=== PATIENT | male | born 1975 | race Caucasian/White ===

== ENCOUNTER → 2018-06-12 12:09 | Outpatient (CLI) | payer OTHER, SELFPAY ==
--- NOTE | 2018-06-12 12:12 | RAD_ITS ---
STUDY: X-RAY - LEFT KNEE REASON FOR EXAM: Male, 42 years old. Pain TECHNIQUE: 4 view(s) of the knee. COMPARISON: None. FINDINGS: Normal visualized distal femur. Normal visualized proximal tibia and fibula. Normal proximal tibiofibular articulation. There is no demonstrated fracture. Normal medial femorotibial compartment. Normal lateral femorotibial compartment. Normal patellofemoral articulation. There is no demonstrated joint effusion. The soft tissue structures are unremarkable. RAD/Knee 4 or More Views IMPRESSION: Normal x-ray examination of the knee. Electronically Signed: Hola Steele MD at 22:41 EDT , Service support ,
--- NOTE | 2018-06-12 12:12 | RAD_ITS ---
STUDY: X-RAY - RIGHT KNEE REASON FOR EXAM: Male, 42 years old. Pain TECHNIQUE: 4 view(s) of the knee. COMPARISON: None. FINDINGS: Normal visualized distal femur. Normal visualized proximal tibia and fibula. Normal proximal tibiofibular articulation. There is no demonstrated fracture. Normal medial femorotibial compartment. Normal lateral femorotibial compartment. Normal patellofemoral articulation. There is no demonstrated joint effusion. The soft tissue structures are unremarkable. RAD/Knee 4 or More Views IMPRESSION: Normal x-ray examination of the knee. Electronically Signed: Hola Steele MD at 22:40 EDT , Service support ,
[2018-06-12 14:07] LABS: Erythrocyte Sedimentation Rate < 1 mm/hr (0-15)
[2018-06-12 14:10] LABS: CRP < 2.90 mg/L (0.0-3.0); Rheumatoid Factor < 10.0 IU/mL (<15)
[2018-06-12 14:16] LABS: Vitamin D,25 Hydroxy 21.9 ng/mL (29.95-100.01)
[2018-06-14 09:12] LABS: CCP IgG Antibodies 5 units (0-19)
[2018-06-14 09:24] LABS: ANTINUCLEAR ANTIBODIES DIRECT Negative (Negative)
== END ==
PROVIDERS: Family Provider Family Medicine; PCP Family Medicine; Visit Provider Family Medicine
DX: M25.561 Pain in right knee (principal); M25.562 Pain in left knee; M06.4 Inflammatory polyarthropathy
CPT/HCPCS: 36415; 73564; 82306; 85652; 86038; 86140; 86200; 86431

== ENCOUNTER → 2018-06-21 10:13 | Outpatient (CLI) | payer OTHER, SELFPAY ==
[2018-06-21 12:13] LABS: Absolute Lymphocyte Count 2.33 X10^3/ul (0.83-4.51); Basophil# 0.02 X10^3/uL; Basophil% 0.3 % (0-1); Eosinophil# 0.23 X10^3/uL; Eosinophils% 3.2 % (0-5); Hematocrit 42.2 % (40-54); Hemoglobin 14.9 g/dl (13.0-16.5); Lymphocyte # 2.33 X10^3/ul (4.0); Lymphocyte % 32.3 % (19-41); Mean Corp Hgb Conc 35.3 g/gl (32-36); Mean Corpuscular Hgb 30.7 pg (27.0-32.0); Mean Platelet Vol. 12.8 fl (6.2-12.0); Monocyte# 0.64 X10^3/uL; Monocyte% 8.9 % (0-10); Neutrophil # 3.97 X10^3/uL (2.7-7.7); Platelet Count 217 K/mm3 (150-450); RBC Distribution Width CV 13.1 % (11.6-14.6); RBC Distribution Width SD 40.7 fl (35.1-43.9); Red Blood Count 4.85 M/mm3 (4.6-6.2); White Blood Count 7.2 K/mm3 (4.4-11.0)
[2018-06-21 12:31] LABS: ALB/GLOB Ratio 1.3 RATIO (0.9-2.4); AST(SGOT) 26 U/L (15-37); Alanine Aminotransfer ALT/SGPT 62 U/L (16-61); Albumin, Serum 3.9 g/dL (3.2-5.0); Alkaline Phosphatase 49 U/L (45-117); Anion Gap 5 (5-15); BUN 16 mg/dL (7-18); BUN/Creat Ratio 13.8 RATIO (10-20); Calcium,Total 8.9 mg/dL (8.5-10.1); Chloride 105 mmol/L (98-107); Creatinine, Serum 1.16 mg/dL (0.70-1.30); EST Glomerular Filtration Rate 73 mL/min (>60); Est Glom Filt Rate - Afr Amer 89 mL/min (>60); Globulin 3.1 g/dL (2.2-4.2); Glucose 84 mg/dL (74-106); Potassium 4.3 mmol/L (3.5-5.1); Sodium Level 141 mmol/L (136-145)
[2018-06-21 12:33] LABS: POSITIVE COUNT NO; POSITIVE DIFFERENTIAL NO; POSITIVE MORPHOLOGY NO
[2018-06-23 10:18] LABS: ANTINUCLEAR ANTIBODIES DIRECT Negative (Negative)
[2018-06-25 16:06] LABS: Testosterone, % Free 3.59 % (1.50-4.20); Testosterone, Free 9.98 ng/dL (5.00-21.00)
[2018-06-26 11:22] LABS: Testosterone, Total 278 ng/dL (264-916); Transferrin 218 mg/dL (200-370)
== END ==
PROVIDERS: Family Provider Family Medicine; PCP Family Medicine; Visit Provider Family Medicine
DX: Z00.01 Encounter for general adult medical examination with abnormal findings (principal); E55.9 Vitamin D deficiency, unspecified; R68.82 Decreased libido; M25.50 Pain in unspecified joint; R53.83 Other fatigue
CPT/HCPCS: 36415; 80053; 84402; 84403; 84466; 85025; 86038; 86225; 86235

== ENCOUNTER 2018-08-14 03:29 | Emergency (ER) | payer OTHER, SELFPAY ==
[2018-08-14 03:32] VITALS: BP 155/100; PULSE 83; RESP 20; TEMP 36.4; O2SAT 100; BMI 32.1
[2018-08-14] MEDS: 0.9% Normal Saline 1,000 ML 999 ML IV (04:15)
[2018-08-14] MEDS: proCHLORPERazine 10 MG/2 ML Vial IV (04:15)
[2018-08-14] MEDS: DiphenhydrAMINE 50 MG/ML Syringe IV (04:17)
[2018-08-14] MEDS: Ketorolac 30 MG/ML Syringe IV (04:18)
--- NOTE | 2018-08-14 04:59 | ED.DCSUM_ITS ---
- ER Visit Summary Date of Service: 08/14/18 Chief Complaint: [] Headache History of Present Illness: The patient is a 42 M complaining of migraine headache started 9 hours ago. It is a tightness. He has had similar migraines once per week for the last several years. He has had CT scans and evaluations a s an outpatient. Is associated with one episode of emesis. Physical Examination: [] Vital signs reviewed General: Well-nourished well-developed Head: Normocephalic atraumatic Eyes: Pupils equal round and reactive to light extraocular movements intact ENT: TMs clear no hemotympanum no trauma Neck: Nontender full range of motion Cardiovascular: Regular rate rhythm no murmurs normal S1-S2 Respiratory: No distress clear to auscultation bilaterally chest nontender Abdomen: Soft nontender nondistended normal bowel sounds no masses Back: Nontender no CVA tenderness Extremities: Nontender active range of motion ?4 extremities no trauma Skin: Normal color no trauma Neuro alert oriented cranial nerves II through XII intact normal strength sensation reflexes Test Results: [] Emergency Department Course and Treatment: [] Patient given IV fluids, Compazine, Toradol, Benadryl with complete resolution of his headache 1 hour later. Will be discharged. I do not feel he needs lab work or imaging. We will follow-up as an outpatient Treatment Plan: [] Disposition: [] Impression: [] Migraine headache This note was generated with [employer] dictation software. It may contain incorrect words, spelling, and punctuation that were not noted in review of the chart prior to signing ED Disposition - Plan for ED Patient: Chief Complaint: Headache Referrals: Jordy Barton DO [Primary Care Provider] -
--- NOTE | 2018-08-14 04:59 | ED.DEP ---
ED Disposition - Plan for ED Patient: Disposition: Home or Assisted Living Chief Complaint: Headache Instructions: ED Headache Migraine Referrals: Jordy Barton DO [Primary Care Provider] -
[2018-08-14 05:08] VITALS: BP 162/71; PULSE 79; RESP 16; O2SAT 98
== END 2018-08-14 05:10 | disposition home or self-care (01) ==
PROVIDERS: Emergency Provider Emergency Medicine; Family Provider Family Medicine; PCP Family Medicine
DX: G43.909 Migraine, unspecified, not intractable, without status migrainosus (principal)
CPT/HCPCS: 96361; 96374; 96375; 99284; J7030; A4216

== ENCOUNTER → 2018-09-29 11:26 | Outpatient (CLI) | payer OTHER, SELFPAY ==
[2018-09-29 15:45] LABS: Amphetamine Urine VISTA NEGATIVE (<1000 ng/mL); Barbiturate Urine VISTA NEGATIVE (< 200 ng/mL); Benzodiazepine Urine VISTA NEGATIVE (< 200 ng/mL); Cocaine Urine VISTA NEGATIVE (< 300 ng/mL); Ecstacy Urine VISTA NEGATIVE (< 500 ng/mL); Methadone Urine VISTA NEGATIVE (< 300 ng/mL); PCP Urine VISTA NEGATIVE (< 25 ng/mL); THC Urine VISTA NEGATIVE (< 50 ng/mL); Vista UDS pH Range 6
== END ==
PROVIDERS: Family Provider Family Medicine; PCP Family Medicine; Visit Provider Family Medicine
DX: Z02.1 Encounter for pre-employment examination (principal)
CPT/HCPCS: 80307

== ENCOUNTER → 2020-03-19 08:46 | Outpatient (CLI) | payer OTHER, SELFPAY ==
[2018-10-04 08:25] VITALS: BMI 32.1
[2020-03-19 13:00] LABS: Hemoglobin A1c 5.4 % (3.8-5.6)
[2020-03-19 13:07] LABS: Cholesterol 144 mg/dL (200); High Density Lipoprotein 36 mg/dL; Triglycerides 67 mg/dL; Very Low Density Lipoprotein 13 mg/dL (5-40)
== END ==
PROVIDERS: PCP Family Medicine; Visit Provider Family Medicine
DX: Z00.00 Encounter for general adult medical examination without abnormal findings (principal); R73.01 Impaired fasting glucose
CPT/HCPCS: 36415; 80061; 83036

== ENCOUNTER → 2020-09-23 | Outpatient (CLI) | payer OTHER, SELFPAY ==
[2018-10-04 08:25] VITALS: BMI 32.1
== END | disposition home or self-care (01) ==
LOC: LABSPEC 18:06
PROVIDERS: PCP Family Medicine; Referring Provider Family Medicine; Visit Provider Family Medicine
DX: Z03.818 Encounter for observation for suspected exposure to other biological agents ruled out (principal)
CPT/HCPCS: 87635; C9803; U0005; U0003

== ENCOUNTER → 2020-10-02 11:54 | Outpatient (CLI) | payer OTHER, SELFPAY ==
[2018-10-04 08:25] VITALS: BMI 32.1
[2020-10-03 07:14] LABS: SARS-COV-2 TOTAL ABS Reactive (Nonreactive)
== END ==
PROVIDERS: PCP Family Medicine; Visit Provider Family Medicine
DX: U07.1 COVID-19 (principal)
CPT/HCPCS: 36415; 86769

== ENCOUNTER 2021-06-12 23:16 | Emergency (ER) | payer OTHER, SELFPAY ==
[2021-06-12 23:17] VITALS: BP 161/126; PULSE 72; RESP 16; TEMP 36.6; O2SAT 96; BMI 30.8
[2021-06-12] MEDS: SUMAtriptan 6 MG/0.5 ML Vial SC (23:55)
[2021-06-12 23:59] VITALS: BP 159/97
--- NOTE | 2021-06-13 00:08 | EDS_ITS ---
HPI History of Present Illness Chief Complaint: Headache Informant: patient Onset/Context/Timing Onset: Today Context: Gradual and Onset Timing: Continuous Quality -Headache: Positive for Similar Prior Headaches Location: Bitemporal and retro-orbital Current Severity: Moderate Maximum Severity: Moderate Worsened by: Light a little bit Relieved by: Nothing, tried Advil earlier and DayQuil Associated Symptoms/Injury Associated Symptoms: Positive for Nausea, Sinus Pressure, Blurred Vision and Photophobia; Negative for Fever, Vomiting, Sore Throat, Numbness, Tingling, Visual Changes and Visual Loss Injury - LYNCH: Negative for Direct Trauma Narrative Narrative: Patient presents saying that he has a migraine all day today as well as sinus congestion and a head cold for the past 2 or 3 days. He states that he received the final [employer] Covid vaccination this past month in April, and I have had a bunch of colds since then. He denies any known definite Covid exposure but states that his son who lives with him is currently quarantining because he had an exposure but is currently asymptomatic. The patient states with his other colds in the past couple weeks he has not even thought about doing a Covid test. He denies any fevers, chills, loss of smell or taste, myalgias. [facility] Medical History Aytyzhv-Cratc-Supde disease Home Medications metoclopramide HCl 10 mg PO Q6H PRN #20 tab 06/13/21 [Rx Last Taken Unknown] Allergy/AdvReac Type Severity Reaction Status Date / Time No Known Allergies Allergy Verified 06/12/21 23:19 Surgical History h/o ankle surgery Social History Smoking Status: Never smoker ROS ROS ED Constitutional Constitutional ED: Denies chills or fever(s) Eyes Eyes: Reports blurry vision; Denies diplopia ENT ENT ED: Reports nasal congestion and sinus pressure; Denies ear pain, sinus pain or sore throat Cardiovascular Cardiovascular: Denies chest pain or palpitations Respiratory/Chest Respiratory/Chest: Denies cough or dyspnea Gastrointestinal Gastrointestinal: Reports nausea and vomiting; Denies abdominal pain or diarrhea Genitourinary Genitourinary ED: Denies dysuria or urinary frequency Musculoskeletal Musculoskeletal: Denies back pain or myalgias Integumentary Denies abscess or rash Neurologic Neurologic: Reports headache(s); Denies paresthesias or weakness EXAM Physical Exam Const Vital Signs: 06/12/21 23:17 06/12/21 23:59 Temperature 98 F Temperature Source Temporal Pulse Rate 72 Respiratory Rate 16 Blood Pressure 161/126 H 159/97 H Blood Pressure Mean 137 117 Pulse Ox 96 Oxygen Delivery Method Room Air HEENT Reports normocephalic and moist mucous membranes HEENT Narrative: No significant sinus tenderness or purulent nasal discharge. atraumatic Eyes PERRL, EOMs intact bilaterally and conjunctivae normal Eyes Narrative: mild photophobia Neck no lymphadenopathy, supple and no meningeal signs Resp normal respiratory effort and clear to auscultation bilaterally GI non-tender and non-distended Palpation: soft Extremity normal to inspection and full ROM Neuro oriented x3 and CN's II-XII intact bilaterally Sensorium / Orientation: awake and alert Speech: speech normal Gait (Neuro): normal gait Motor Exam: strength 5/5 throughout Psych mental status grossly normal Skin Lesions: no lesions Rashes: no rashes MDM MDM MDM Narrative Medical decision making narrative: Patient was given a dose of subcutaneous Imitrex 6 mg and observed. His headache is much better. We discussed using oxymetazoline nasally for his sinus symptoms which may also help his headaches with this episode. He is amenable, we did a Covid test and it was negative, I do not think he needs any antibiotics for his sinus symptoms at this time. Discharge Plan Triage Chief Complaint: Headache ED Provider: Charles Marvin Dx/Rx/DC Orders Clinical Impression: Headache, migraine, Sinus pressure Instructions: Self-Care for Sinusitis, ED, Migraine (Classical) Prescriptions: New metoclopramide HCl [metoclopramide HCl] 10 MG tablet 10 mg PO Q6H PRN (Reason: nausea or headache) Qty: 20 RF: 0 Primary Care Provider: Jordy Barton Referrals: Jordy Barton, [Primary Care Provider] - 3-5 Days if not improving Disposition Disposition: Home, Self Care
[2021-06-13 01:16] VITALS: RESP 16
== END 2021-06-13 01:17 | disposition home or self-care (01) ==
PROVIDERS: Emergency Provider Emergency Medicine; PCP Family Medicine
DX: G43.909 Migraine, unspecified, not intractable, without status migrainosus (principal); G60.0 Hereditary motor and sensory neuropathy
CPT/HCPCS: 87426; 96372; 99282; J3030

== ENCOUNTER → 2025-02-19 | Outpatient (CLI) | payer BC, SELFPAY ==
[2025-02-19 11:22] LABS: Absolute Lymphocyte Count 1.52 X10^3/uL (0.83-4.51); Absolute Neutrophil Count 4.5 X10^3/uL (2.0-7.7); Basophil# 0.04 X10^3/uL; Basophil% 0.6 % (0-1); Eosinophil# 0.16 X10^3/uL; Eosinophils% 2.4 % (0-5); Hematocrit 42.9 % (40-54); Lymphocyte # 1.52 X10^3/ul (0.83-4.51); Lymphocyte % 22.6 % (19-41); Mean Corpuscular Hgb 30.5 pg (27.0-32.0); Mean Corpuscular Volume 87.4 fL (80-94); Mean Platelet Vol. 12.5 fl (6.2-12.0); Monocyte# 0.51 X10^3/uL; Monocyte% 7.6 % (0-10); NRBC Flagged by Analyzer 0 % (0-5); Neutrophil # 4.49 X10^3/uL (2.7-7.7); Neutrophil % 66.7 % (47-70); Platelet Count 205 K/mm3 (150-450); RBC Distribution Width SD 41.5 fl (35.1-43.9); Red Blood Count 4.91 M/mm3 (4.6-6.2); White Blood Count 6.7 K/mm3 (4.4-11.0)
[2025-02-19 11:48] LABS: AST(SGOT) 30 U/L (<=37); Alanine Aminotransfer ALT/SGPT 18 U/L (<=46); Albumin, Serum 4.5 g/dL (3.5-5.0); Alkaline Phosphatase 67 U/L (40-129); Anion Gap 10 (5-15); BUN 15 mg/dL (4-19); BUN/Creat Ratio 13.2 RATIO (10-20); Calcium,Total 9.3 mg/dL (7.6-11.0); Carbon Dioxide 27.2 mmol/L (21.0-32.0); Chloride 105 mmol/L (98-108); Cholesterol 144 mg/dL (<=200); Creatinine, Serum 1.11 mg/dL (0.70-1.20); EST Glomerular Filtration Rate 81 (>60); Globulin 2.3 g/dL (2.2-4.2); Glucose 75 mg/dL (70-99); High Density Lipoprotein 48 mg/dL; Low Density Lipoprotein Calc. 73 mg/dL; Potassium 4.3 mmol/L (3.3-5.1); Protein, Total 6.8 g/dL (5.9-8.4); Sodium Level 142 mmol/L (133-145); Triglycerides 116 mg/dL; Very Low Density Lipoprotein 23 mg/dL (5-40); cholesterol:hdl ratio screen 2.99
== END | disposition home or self-care (01) ==
LOC: LAB 10:07
PROVIDERS: PCP Family Medicine; Referring Provider Family Medicine; Visit Provider Family Medicine
DX: Z00.00 Encounter for general adult medical examination without abnormal findings (principal)
CPT/HCPCS: 36415; 80053; 80061; 85025